=== PATIENT | male | born 1995 | race Caucasian/White ===

== ENCOUNTER 2017-06-29 07:34 | Emergency (ER) | payer BC ==
[~2017-06-29] VITALS: Ht 170.2 cm; Wt 100.2 kg
[2017-06-29] MEDS ORDERED: BACTROBAN OINTM22 GM TP (08:07)
[2017-06-29] MEDS ORDERED: KEFLEX500 MG PO (08:07)
[2017-06-29 08:30] VITALS: BP 143/103
== END 2017-06-29 08:31 | disposition home or self-care (01) ==
LOC: EME 07:34
DX: L03.314 Cellulitis of groin (principal)
CPT/HCPCS: 99281; 99284